=== PATIENT | male | born 1940 | race Hispanic/Latino ===

== ENCOUNTER 2018-09-05 18:00 | Inpatient (IN) | payer OTHER ==
[2018-09-05 20:43] VITALS: BMI 20.2
[2018-09-05] MEDS ORDERED: Oxycodone/Acetaminophen 5/325 mg Tab PO PRN (23:29)
[2018-09-05] MEDS ORDERED: Insulin NPH Human 100 Units/ml Inj SC SCH (23:45)
[2018-09-06] MEDS ORDERED: levoFLOXacin 750 MG TAB PO SCH (01:00)
[2018-09-06] MEDS ORDERED: Insulin Lispro (humaLOG) 100 Units/ml Inj SC SCH ×2 (01:00)
--- NOTE | 2018-09-06 01:44 | CP.PCM.HP ---
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 Denies any pain or discomfort at this time. Present on Admission - Present on Admission Any Indicators Present on Admission: Yes History of Uncontrolled Diabetes: Yes Review of Systems - Review of Systems Review of Systems: Apart from positives and pertinent negatives mentioned in the HPI rest of 14 points ROS was unremarkable. Past Patient History - Past Medical History & Family History Past Medical History?: Yes Pertinent Family History: Lung cancer in brother Uterine cancer in mother CVA in father - Past Social History Smoking Status: Former Smoker Alcohol: None Drugs: Denies - CARDIAC Hx Hypercholesterolemia: Yes Hx Hypertension: Yes Other/Comment: orthostatic hypotension - PULMONARY Hx Pneumonia: Yes - NEUROLOGICAL Hx Syncope: Yes - HEENT Other/Comment: wears eyeglass - ENDOCRINE/METABOLIC Hx Diabetes Mellitus Type 1: Yes - HEMATOLOGICAL/ONCOLOGICAL Hx AIDS: No Hx Human Immunodeficiency Virus (HIV): No - MUSCULOSKELETAL/RHEUMATOLOGICAL Hx Falls: Yes Hx Gout: Yes - GASTROINTESTINAL Hx Bowel Surgery: Yes Other/Comment: has jejunostomy and peg tube, pancreatic ca - PSYCHIATRIC Hx Substance Use: No - SURGICAL HISTORY Other/Comment: small bowel strictures - ANESTHESIA Hx Anesthesia: Yes Hx Anesthesia Reactions: Yes Has any member of the family had a problem w/ anesthesia?: No Meds Allergies/Adverse Reactions: Allergies Allergy/AdvReac Type Severity Reaction Status Date / Time No Known Allergies Allergy Verified 09/05/18 20:16 Physical Exam - Constitutional Appears: Non-toxic - Head Exam Head Exam: ATRAUMATIC, NORMAL INSPECTION, NORMOCEPHALIC - Eye Exam Eye Exam: EOMI Pupil Exam: PERRL - ENT Exam ENT Exam: Mucous Membranes Moist - Respiratory Exam Respiratory Exam: Clear to Auscultation Bilateral, NORMAL BREATHING PATTERN - Cardiovascular Exam Cardiovascular Exam: REGULAR RHYTHM, RRR, +S1, +S2 - GI/Abdominal Exam GI & Abdominal Exam: Soft Additional comments: NT/ND, no organomegaly, PEG and J-tubes in place, no evidence of bleeding, oozing or infection - Rectal Exam Rectal Exam: Deferred - Exam Additional comments: Deferred - Extremities Exam Extremities exam: Positive for: full ROM, normal inspection Additional comments: No joint deformity - Back Exam Back exam: NORMAL INSPECTION - Neurological Exam Neurological exam: Alert, CN II-XII Intact, Oriented x3 - Psychiatric Exam Psychiatric exam: Normal Affect, Normal Mood - Skin Skin Exam: Dry, Normal Color, Warm Results - Vital Signs Recent Vital Signs: Last Vital Signs Temp Pulse 75 09/05/18 21:32 Resp 18 09/05/18 21:32 BP Pulse Ox 100 09/05/18 21:32 - Labs Labs: Laboratory Results - last 24 hr 09/05/18 21:29 POC Glucose (mg/dL) 153 H Assessment & Plan - Assessment and Plan (Free Text) Assessment: 78 yo CM with recurrence of pancreatic cancer and GOO and pneumonia/bacteremia Plan: Continue Levaquin for total of 2 weeks since first negative culture (stop date 09/11/18) PT/OT Continue home meds Tube feeding Pain management Fall precautions - Date & Time Date: 09/05/18 Time: 23:00
[2018-09-06] MEDS: Insulin Lispro (humaLOG) 100 Units/ml Inj SC SCH ×9 (02:30→21:27)
[2018-09-06] MEDS: Insulin Detemir 100 Units/ml Inj SC SCH (05:44)
[2018-09-06 06:52] LABS: HEMOGLOBIN 7.9 g/dL (12.0-18.0); MEAN CELL VOLUME 93.4 fl (80.0-94.0); MEAN CORPUSCULAR HEMOGLOBIN 31.8 pg (27.0-31.0); MEAN CORPUSCULAR HGB CONC 34.1 g/dL (33.0-37.0); RBC 2.48 Mil/uL (4.40-5.90); WHITE BLOOD COUNT 6.2 K/uL (4.8-10.8)
[2018-09-06 07:02] LABS: BLOOD UREA NITROGEN 13 mg/dl (9-20); GFR NON-AFRICAN AMERICAN > 60
[2018-09-06] MEDS ORDERED: LANSOPRAZOLE 15 MG PEG SCH (09:00)
[2018-09-06] MEDS ORDERED: LIPASE PEG SCH (09:00)
[2018-09-06] MEDS ORDERED: LIDOCAINE TP SCH (09:00)
[2018-09-06] MEDS ORDERED: INSULIN GLARGINE SC SCH (09:00)
[2018-09-06] MEDS ORDERED: PROTEASE PEG SCH (09:00)
[2018-09-06] MEDS ORDERED: AMYLASE PEG SCH (09:00)
[2018-09-06] MEDS: Lidocaine 5% Patch TD SCH (09:34)
[2018-09-06] MEDS: POLYETHYLENE GLYCOL 3350 17 GM/Dose PACKET PEG SCH (09:34)
[2018-09-06] MEDS: Pantoprazole 20 mg EC Tab PO SCH (09:36)
[2018-09-06] MEDS: levoFLOXacin 750 MG TAB PO SCH (16:49)
[2018-09-06] MEDS: Insulin NPH Human 100 Units/ml Inj SC SCH (17:44)
[2018-09-07] MEDS: Insulin Lispro (humaLOG) 100 Units/ml Inj SC SCH ×12 (01:08→21:28)
[2018-09-07] MEDS: Insulin Detemir 100 Units/ml Inj SC SCH (05:19)
[2018-09-07] MEDS: POLYETHYLENE GLYCOL 3350 17 GM/Dose PACKET PEG SCH (09:00)
[2018-09-07] MEDS: Pantoprazole 20 mg EC Tab PO SCH (09:01)
[2018-09-07] MEDS: Lidocaine 5% Patch TD SCH (09:01)
[2018-09-07] MEDS: Enoxaparin 40 mg Syringe SC SCH (13:43)
[2018-09-07] MEDS: levoFLOXacin 750 MG TAB PO SCH (16:00)
[2018-09-07] MEDS ORDERED: Insulin NPH Human 100 Units/ml Inj SC STA (18:52)
[2018-09-07] MEDS: Insulin NPH Human 100 Units/ml Inj SC SCH (18:54)
[2018-09-08] MEDS: Insulin Lispro (humaLOG) 100 Units/ml Inj SC SCH ×10 (01:11→21:09)
[2018-09-08] MEDS: Insulin Detemir 100 Units/ml Inj SC SCH (05:58)
[2018-09-08 07:45] LABS: HEMOGLOBIN 8.3 g/dL (12.0-18.0); MEAN CELL VOLUME 92.5 fl (80.0-94.0); MEAN CORPUSCULAR HEMOGLOBIN 31.8 pg (27.0-31.0); MEAN CORPUSCULAR HGB CONC 34.4 g/dL (33.0-37.0); RBC 2.61 Mil/uL (4.40-5.90); RED CELL DISTRIBUTION WIDTH 16.4 % (11.5-14.5); WHITE BLOOD COUNT 6.2 K/uL (4.8-10.8)
[2018-09-08] MEDS: Enoxaparin 40 mg Syringe SC SCH (09:58)
[2018-09-08] MEDS: POLYETHYLENE GLYCOL 3350 17 GM/Dose PACKET PEG SCH (10:01)
[2018-09-08] MEDS: Lidocaine 5% Patch TD SCH (10:01)
[2018-09-08] MEDS: Pantoprazole 20 mg EC Tab PO SCH (10:03)
[2018-09-08] MEDS: levoFLOXacin 750 MG TAB PO SCH (17:59)
[2018-09-08] MEDS ORDERED: Insulin NPH Human 100 Units/ml Inj SC SCH (22:00)
[2018-09-08] MEDS ORDERED: Insulin Detemir 100 Units/ml Inj SC SCH (22:00)
--- NOTE | 2018-09-09 01:45 | CON ---
DATE: 09/08/2018 HISTORY OF PRESENT ILLNESS: This is a 78-year-old male with known history of type 2 insulin-requiring diabetes and significant history of recurrent pancreatic carcinoma now undergoing recent management for right lower lobe pneumonia and bacteremia on oral antibiotic therapy with physical, was transferred to TCU for recent deconditioning and is being referred now for diabetic management because of extremes of glycemic fluctuations as noted thereof. PAST MEDICAL HISTORY: As mentioned above, history of type 2 insulin-requiring diabetes on a combination of Levemir given in the morning and NPH given at a higher dose at dinnertime as noted with ongoing Humalog coverage scale as given and also has extremes of glycemic fluctuations from hypoglycemia to marked hyperglycemic accelerations as noted thereof. History of hypertension and dyslipidemia, history of pancreatic carcinoma diagnosed initially in 1997 to where he underwent a distal pancreatectomy and splenectomy with subsequent chemo and radiation therapy. He had recurrence in 2018 with subsequent chemo and radiation therapy undertaken thereof. He also had a subsequent gastric outlet obstruction and a prolonged hospitalization as noted. FAMILY HISTORY: Positive for hypertension and heart disease and significant cancer among the family members. SOCIAL HISTORY: The patient is a former smoker with a very supportive family as noted. REVIEW OF SYSTEMS: Admits to generalized body weakness with episodic bouts of dizziness and lightheadedness that has improved over the past week or so. No chest pains or palpitations with a residual nonproductive cough as noted. His oral intake has been variable with nausea and dyspepsia and currently only on liquid diet as noted. No recent alterations of bowel and urinary patterns. PHYSICAL EXAMINATION: GENERAL: This is an average built male in no apparent distress with a blood pressure of 140/80, pulse of 70 beats per minute regular, temperature 98, respirations 20. Height is 5 feet and 7 inches. Weight is 129 pounds. HEENT: Head normocephalic. Eyes anicteric with pink conjunctivae. Funduscopy not possible at this time. Ears, nose and throat otherwise normal. NECK: Supple. Thyroid gland is normal in size. No carotid bruits or any cervical adenopathy. CARDIOPULMONARY: Some adynamic precordium. S1, S2 is rapid and regular. LUNGS: Clear to auscultation. ABDOMEN: Flat, soft with positive bowel sounds. EXTREMITIES: No peripheral edema. Pulses are +2 bilaterally. LABORATORY DATA: His glucose levels today have ranged from 63-82 and 271 with a fasting glucose of 416 mg/dL. ASSESSMENT: This is a 78-year-old male with uncontrolled and decompensated type 2 insulin-requiring diabetes with markedly labile glycemic fluctuations as noted on a combination of basal insulin with Humalog coverage scale as given. He also has significant recurrent pancreatic carcinoma with prior chemo and radiation therapy as given. PLAN OF MANAGEMENT: We will modify his current insulin regimen to a more physiologic basal and bolus insulin drug combination and detailed orders have been given. Because of the liquid diet that the patient is on at this time with labile glycemic fluctuations, we will prudently lower his insulin requirements thereof. We will obtain serial chemistries and supplement accordingly needed. We will initiate Humalog given as 4 units t.i.d. with meals to start tomorrow morning as ordered. We will add basal insulin given as Levemir at 12 units subcu at bedtime daily as given. We will modify the coverage scale to obviate hypoglycemia and very minimal coverage will be given only for glucose levels above 300 as noted. We will follow and advise accordingly. Lizy Flood MD
[2018-09-09 06:03] LABS: BASO % 0.6 % (0.0-2.0); EOS # 0.3 K/uL (0.0-0.7); HEMOGLOBIN 8.9 g/dL (12.0-18.0); LYMPH # 0.6 K/uL (1.0-4.3); MEAN CELL VOLUME 92.5 fl (80.0-94.0); MEAN CORPUSCULAR HEMOGLOBIN 31.5 pg (27.0-31.0); MEAN CORPUSCULAR HGB CONC 34.1 g/dL (33.0-37.0); MEAN PLATELET VOLUME 7.8 fl (7.2-11.7); MONO # 0.6 K/uL (0.0-0.8); MONO % 12.5 % (0.0-10.0); NEUT # 3.7 K/uL (1.8-7.0); NEUT % 70.9 % (50.0-75.0); RBC 2.82 Mil/uL (4.40-5.90); RED CELL DISTRIBUTION WIDTH 16.7 % (11.5-14.5); WHITE BLOOD COUNT 5.2 K/uL (4.8-10.8)
[2018-09-09 06:17] LABS: ALBUMIN 3.3 g/dL (3.5-5.0); ALT/SGPT 77 U/L (21-72); AST/SGOT 83 U/L (17-59); BLOOD UREA NITROGEN 15 mg/dl (9-20); GFR NON-AFRICAN AMERICAN > 60
[2018-09-09] MEDS: Insulin Lispro (humaLOG) 100 Units/ml Inj SC SCH ×8 (07:00→22:04)
[2018-09-09] MEDS: Enoxaparin 40 mg Syringe SC SCH (09:27)
[2018-09-09] MEDS: POLYETHYLENE GLYCOL 3350 17 GM/Dose PACKET PEG SCH (09:27)
[2018-09-09] MEDS: Lidocaine 5% Patch TD SCH (09:27)
[2018-09-09] MEDS: Pantoprazole 20 mg EC Tab PO SCH (09:29)
--- NOTE | 2018-09-09 11:38 | PN ---
DATE: 09/09/2018 LOCATION: Room [address] [place] [address]. SUBJECTIVE: This is a 78-year-old male with recent uncontrolled type 2 insulin-requiring diabetes with underlying recurrent pancreatic carcinoma and is now being followed closely for metabolic management. His glycemic levels are fluctuating also with the variability of his oral intake as noted. His glucose levels have ranged from 60 to 266 and 349 mg/dL as noted overnight. His chemistries today showed a BUN of 15, sodium 129, potassium 4.9, chloride 91, CO2 of 27, glucose 372 and creatinine 0.8. ASSESSMENT: This is a 78-year-old male with recurrent pancreatic carcinoma with prior chemo and radiation therapy and is now being followed closely for his labile glycemic fluctuations related to the underlying disease process and also to the variability of his oral intake as noted thereof. He is currently only on the liquid diet as noted. PLAN OF MANAGEMENT: We will modify once again his basal insulin and increase the Levemir to 16 units subcu at bedtime daily to start tonight. We will continue the low-dose correction scale using NovoLog insulin to obviate hypoglycemia and detailed orders have been given. We will also continue the low-dose prandial insulin given as NovoLog at 4 units t.i.d. with meals as ordered. We will obtain serial chemistries and supplement accordingly as needed. We will follow. Lizy Flood MD
[2018-09-09] MEDS: Sodium Chloride 0.9% 1,000 ML IV SCH ×2 (13:03→22:43)
[2018-09-09] MEDS: levoFLOXacin 750 MG TAB PO SCH (18:11)
[2018-09-09] MEDS: LIPASE PEG SCH ×2 (18:12→18:45)
[2018-09-09] MEDS: AMYLASE PEG SCH ×2 (18:12→18:45)
[2018-09-09] MEDS: PROTEASE PEG SCH ×2 (18:12→18:45)
[2018-09-09] MEDS ORDERED: Insulin Detemir 100 Units/ml Inj SC SCH (22:00)
[2018-09-10] MEDS ORDERED: Insulin Lispro (humaLOG) 100 Units/ml Inj SC STA (01:05)
[2018-09-10] MEDS: Insulin Lispro (humaLOG) 100 Units/ml Inj SC SCH ×6 (06:45→21:16)
[2018-09-10 07:00] LABS: BLOOD UREA NITROGEN 15 mg/dl (9-20); CALCIUM 8.9 mg/dL (8.4-10.2); GFR NON-AFRICAN AMERICAN > 60
[2018-09-10] MEDS: POLYETHYLENE GLYCOL 3350 17 GM/Dose PACKET PEG SCH (08:48)
[2018-09-10] MEDS: Lidocaine 5% Patch TD SCH (08:48)
[2018-09-10] MEDS: Enoxaparin 40 mg Syringe SC SCH (08:48)
[2018-09-10] MEDS: Pantoprazole 20 mg EC Tab PO SCH (08:55)
[2018-09-10] MEDS: Pantoprazole 40 mg Susp UD PEG SCH (12:49)
[2018-09-10] MEDS ORDERED: Insulin Lispro (humaLOG) 100 Units/ml Inj SC SCH (16:30)
[2018-09-10] MEDS: levoFLOXacin 750 MG TAB PO SCH (17:20)
[2018-09-10] MEDS: AMYLASE PEG SCH (18:36)
[2018-09-10] MEDS: LIPASE PEG SCH (18:36)
[2018-09-10] MEDS: PROTEASE PEG SCH (18:36)
--- NOTE | 2018-09-10 19:04 | PN ---
DATE: 09/10/2018 ENDOCRINOLOGY FOLLOWUP NOTE LOCATION: In room 714. SUBJECTIVE: This is a 78-year-old male with recurrent pancreatic carcinoma and received chemo and radiation therapy, and is now being followed closely for metabolic management because of recent glycemic fluctuations as noted thereof. His oral intake is quite variable and is only tolerating liquid diet during the day as noted and receives enteral tube feedings overnight with supervening hyperglycemic accelerations as noted thereof. LABORATORY DATA: Chemistry showed a BUN of 15, sodium 130, potassium 4.5, chloride 94, CO2 of 27, glucose 157 and creatinine 3.7. His glucose levels overnight have ranged from 145 and very early this morning to 366 mg/dL. ASSESSMENT AND PLAN: So at this time, we will continue the modified basal and bolus insulin regimen because of the metabolic lability as noted thereof. With recurrent pancreatic carcinoma and the patient only on a liquids diet with solid food given overnight, then we will have to modify his current insulin regimen to optimize metabolic control. We will follow and advise accordingly. Lizy Flood MD
[2018-09-10] MEDS ORDERED: Insulin Detemir 100 Units/ml Inj SC SCH (22:00)
[2018-09-11] MEDS: Insulin Lispro (humaLOG) 100 Units/ml Inj SC SCH ×6 (01:23→22:00)
[2018-09-11] MEDS: Enoxaparin 40 mg Syringe SC SCH (09:36)
[2018-09-11] MEDS: Lidocaine 5% Patch TD SCH (09:36)
[2018-09-11] MEDS: POLYETHYLENE GLYCOL 3350 17 GM/Dose PACKET PEG SCH (09:37)
[2018-09-11] MEDS: Pantoprazole 40 mg Susp UD PEG SCH (09:38)
[2018-09-11] MEDS: Pantoprazole 20 mg EC Tab PO SCH (09:39)
[2018-09-11] MEDS ORDERED: Insulin Lispro (humaLOG) 100 Units/ml Inj SC SCH (16:30)
[2018-09-11] MEDS: levoFLOXacin 750 MG TAB PO SCH (16:47)
[2018-09-11] MEDS: PROTEASE PEG SCH (18:14)
[2018-09-11] MEDS: LIPASE PEG SCH (18:14)
[2018-09-11] MEDS: AMYLASE PEG SCH (18:14)
--- NOTE | 2018-09-11 18:43 | CP.PCM.PN ---
Subjective - Date & Time of Evaluation Date of Evaluation: 09/11/18 Time of Evaluation: 15:45 - Subjective Subjective: Patient seen and examined. Claimed he still felt dizzy when rising up in the morning. Objective - Vital Signs/Intake and Output Vital Signs (last 24 hours): Temp Pulse Resp BP Pulse Ox 98.4 F 80 20 134/75 100 09/11/18 16:29 09/11/18 16:29 09/11/18 16:29 09/11/18 16:29 09/11/18 16:29 - Medications Medications: Current Medications Acetaminophen (Tylenol 325mg Tab) 650 mg PO Q6 PRN PRN Reason: Pain, Mild (1-3) Amlodipine Besylate (Norvasc) 2.5 mg PO DAILY [facility] Last Admin: 09/06/18 09:35 Dose: Not Given Bisacodyl (Dulcolax) 10 mg RC DAILY PRN PRN Reason: Constipation Clotrimazole (Mycelex Emely) 10 mg PO QID [facility] Last Admin: 09/11/18 16:48 Dose: Not Given Diphenhydramine HCl (Benadryl) 25 mg PEG HS [facility] Last Admin: 09/10/18 21:59 Dose: Not Given Docusate Sodium (Colace Liquid) 10 mg PEG TID PRN PRN Reason: Constipation Enoxaparin Sodium (Lovenox) 40 mg SC DAILY [facility]; Protocol Last Admin: 09/11/18 09:36 Dose: Not Given Home Med (Lipase/Protease/Amylase [Viokace 20,880-78,300 Units Tb]) 2 units PEG DAILY@1800 [facility] Last Admin: 09/11/18 18:14 Dose: 2 units Insulin Detemir (Levemir) 22 units SC HS [facility] Insulin Human Lispro (Humalog) 0 units SC ACHS [facility] Last Admin: 09/11/18 16:47 Dose: Not Given Insulin Human Lispro (Humalog) 4 units SC ACB [facility] Last Admin: 09/11/18 07:00 Dose: 4 units Insulin Human Lispro (Humalog) 8 units SC ACD [facility] Last Admin: 09/11/18 16:48 Dose: 8 units Insulin Human Lispro (Humalog) 0 units SC DAILY@0200 [facility] Lidocaine (Lidoderm) 1 ea TD DAILY [facility] Last Admin: 03/12/19 09:36 Dose: Not Given Midodrine (Proamatine) 5 mg PEG DAILY [facility] Last Admin: 09/11/18 09:38 Dose: 5 mg Morphine Sulfate (Morphine) 2 mg IVP Q4 PRN PRN Reason: Pain, severe (8-10) Ondansetron HCl (Zofran Inj) 4 mg IVP Q6 PRN PRN Reason: Nausea/Vomiting Pantoprazole Sodium (Protonix Susp) 40 mg PEG DAILY [facility] Last Admin: 09/11/18 09:38 Dose: 40 mg Polyethylene Glycol (Miralax) 17 gm PEG DAILY [facility] Last Admin: 09/11/18 09:37 Dose: 17 gm - Labs Labs: 09/09/18 04:30 09/10/18 06:00 - Constitutional Appears: No Acute Distress - Head Exam Head Exam: ATRAUMATIC - Eye Exam Eye Exam: absent: Scleral icterus - ENT Exam ENT Exam: Mucous Membranes Moist - Neck Exam Neck Exam: absent: Meningismus - Respiratory Exam Respiratory Exam: absent: Rales, Rhonchi, Wheezes, Respiratory Distress - Cardiovascular Exam Cardiovascular Exam: REGULAR RHYTHM, +S1, +S2 - GI/Abdominal Exam GI & Abdominal Exam: Soft. absent: Tenderness - Rectal Exam Rectal Exam: Deferred - Neurological Exam Neurological Exam: Alert, Oriented x3 - Psychiatric Exam Psychiatric exam: Normal Affect - Skin Skin Exam: Dry, Intact Assessment and Plan - Assessment and Plan (Free Text) Assessment: 78 yo male with history of HTN, DM2 and Pancreatic cancer (post pancreatectomy/splenectomy and chemo and radiation) admitted to TCU for therapy because of physical deconditioning. Patient also recently have sepsis secondary to Klebsiella pneumonia bacteremia managed with Zosyn and then later on PO Levaquin 1. Physical Deconditioning continue PT/OT 2. Postural Hypotension still with postural hypotension continue Midodrine 5mg via PEG daily 3. HTN BP stable without medication Amlodipine on hold 4. DM2 BS relatively uncontrolled ACHS with low dose Lispro coverage Levemir 22 units SC HS Lispro 4 units SC ACB Lispro [address] Flood on consult 5. Sepsis resolved continue Levaquin 750mg PO daily for another week
[2018-09-11] MEDS ORDERED: Insulin Detemir 100 Units/ml Inj SC SCH (22:00)
[2018-09-12] MEDS: Insulin Lispro (humaLOG) 100 Units/ml Inj SC SCH ×6 (01:50→21:15)
--- NOTE | 2018-09-12 02:28 | PN ---
DATE: 09/11/2018 ENDOCRINOLOGY FOLLOWUP NOTE LOCATION: Room 714. SUBJECTIVE: This is a 78-year-old male with recent uncontrolled type 2 insulin-requiring diabetes with extremes of glycemic fluctuations and is now being followed closely for metabolic management. His glycemic levels are fluctuating and glucose levels have ranged from 169 to 292 and 366 mg/dL. LABORATORY DATA: His chemistry showed a BUN of 15, sodium 130, potassium 4.5, chloride 94, CO2 of 27, glucose 157 and creatinine 0.7. PLAN: So at this time, we will modify once again his basal and bolus insulin regimen and increase the Humalog to 8 units a.c. dinner to start today as ordered. We will also continue the Humalog given as 4 units a.c. breakfast daily as given. We will modify his basal insulin and increase the Levemir to 22 units subcu at bedtime daily to start tonight as ordered. We will modify the coverage scale to obviate hypoglycemia and detailed orders have been given. We will obtain serial chemistries and supplement accordingly needed. We will follow up. Lizy Flood MD
--- NOTE | 2018-09-12 06:53 | CP.PCM.CON ---
History of Present Illness - History of Present Illness History of Present Illness: 78 yo male with history of HTN, DM2 and Pancreatic cancer (post pancreatectomy/splenectomy and chemo and radiation) admitted to TCU for therapy because of physical deconditioning. Patient also recently have sepsis secondary to Klebsiella pneumonia bacteremia managed with Zosyn and then later on PO Levaquin Cardiology consult called for Orthostatic Hypotension which he claims he has had for about 1 year being treated with Midodrine EKG: non available PMH: HTN, HLD, DM-II, gout pancreatic carcinoma Past Patient History - Past Medical History & Family History Past Medical History?: Yes - Past Social History Smoking Status: Former Smoker Alcohol: None Drugs: Denies - CARDIAC Hx Hypercholesterolemia: Yes Hx Hypertension: Yes - PULMONARY Hx Pneumonia: Yes - NEUROLOGICAL Hx Syncope: Yes - HEENT Other/Comment: wears eyeglass - ENDOCRINE/METABOLIC Hx Diabetes Mellitus Type 2: Yes - HEMATOLOGICAL/ONCOLOGICAL Hx AIDS: No Hx Human Immunodeficiency Virus (HIV): No - MUSCULOSKELETAL/RHEUMATOLOGICAL Hx Falls: Yes Hx Gout: Yes - GASTROINTESTINAL Hx Bowel Surgery: Yes Other/Comment: has jejunostomy and peg tube, pancreatic ca - PSYCHIATRIC Hx Substance Use: No - SURGICAL HISTORY Other/Comment: small bowel strictures - ANESTHESIA Hx Anesthesia: Yes Hx Anesthesia Reactions: Yes Has any member of the family had a problem w/ anesthesia?: No Meds Allergies/Adverse Reactions: Allergies Allergy/AdvReac Type Severity Reaction Status Date / Time No Known Allergies Allergy Verified 09/05/18 20:16 - Medications Medications: Current Medications Acetaminophen (Tylenol 325mg Tab) 650 mg PO Q6 PRN PRN Reason: Pain, Mild (1-3) Amlodipine Besylate (Norvasc) 2.5 mg PO DAILY [facility] Last Admin: 09/06/18 09:35 Dose: Not Given Bisacodyl (Dulcolax) 10 mg RC DAILY PRN PRN Reason: Constipation Clotrimazole (Mycelex Emely) 10 mg PO QID [facility] Last Admin: 09/11/18 22:28 Dose: Not Given Diphenhydramine HCl (Benadryl) 25 mg PEG HS [facility] Last Admin: 09/11/18 22:00 Dose: Not Given Docusate Sodium (Colace Liquid) 10 mg PEG TID PRN PRN Reason: Constipation Enoxaparin Sodium (Lovenox) 40 mg SC DAILY [facility]; Protocol Last Admin: 09/11/18 09:36 Dose: Not Given Home Med (Lipase/Protease/Amylase [Viokace 20,880-78,300 Units Tb]) 2 units PEG DAILY@1800 [facility] Last Admin: 09/11/18 18:14 Dose: 2 units Insulin Detemir (Levemir) 22 units SC HS [facility] Last Admin: 09/11/18 21:59 Dose: 22 u Insulin Human Lispro (Humalog) 0 units SC ACHS [facility] Last Admin: 09/12/18 06:34 Dose: 3 unit Insulin Human Lispro (Humalog) 4 units SC ACB [facility] Last Admin: 09/12/18 06:34 Dose: 4 units Insulin Human Lispro (Humalog) 8 units SC ACD [facility] Last Admin: 09/11/18 16:48 Dose: 8 units Insulin Human Lispro (Humalog) 0 units SC DAILY@0200 [facility] Last Admin: 09/12/18 01:50 Dose: 3 u Levofloxacin (Levaquin) 750 mg PO DAILY [facility]; Protocol Lidocaine (Lidoderm) 1 ea TD DAILY [facility] Last Admin: 09/11/18 09:36 Dose: Not Given Midodrine (Proamatine) 5 mg PEG DAILY [facility] Last Admin: 09/11/18 09:38 Dose: 5 mg Morphine Sulfate (Morphine) 2 mg IVP Q4 PRN PRN Reason: Pain, severe (8-10) Ondansetron HCl (Zofran Inj) 4 mg IVP Q6 PRN PRN Reason: Nausea/Vomiting Pantoprazole Sodium (Protonix Susp) 40 mg PEG DAILY [facility] Last Admin: 09/11/18 09:38 Dose: 40 mg Polyethylene Glycol (Miralax) 17 gm PEG DAILY [facility] Last Admin: 09/11/18 09:37 Dose: 17 gm Physical Exam - Constitutional Appears: Well - Respiratory Exam Respiratory Exam: NORMAL BREATHING PATTERN - Cardiovascular Exam Cardiovascular Exam: REGULAR RHYTHM Results - Vital Signs Recent Vital Signs: Last Vital Signs Temp 984 F H 09/11/18 22:32 Pulse 85 09/11/18 22:32 Resp 20 09/11/18 22:32 BP 123/71 09/11/18 22:32 Pulse Ox 100 09/11/18 22:32 - Labs Result Diagrams: 09/09/18 04:30 03/11/19 06:00 Assessment & Plan (1) Orthostatic hypotension Assessment and Plan: agree continue with Midodrine Status: Acute (2) DM2 (diabetes mellitus, type 2) Status: Acute (3) Pancreas carcinoma Status: Acute
[2018-09-12] MEDS: levoFLOXacin 750 MG TAB PO SCH (09:06)
[2018-09-12] MEDS: POLYETHYLENE GLYCOL 3350 17 GM/Dose PACKET PEG SCH (09:07)
[2018-09-12] MEDS: Enoxaparin 40 mg Syringe SC SCH (09:07)
[2018-09-12] MEDS: Lidocaine 5% Patch TD SCH (09:07)
[2018-09-12] MEDS: Pantoprazole 40 mg Susp UD PEG SCH (09:08)
[2018-09-12] MEDS ORDERED: Insulin Lispro (humaLOG) 100 Units/ml Inj SC SCH (16:30)
[2018-09-12] MEDS: AMYLASE PEG SCH (18:19)
[2018-09-12] MEDS: PROTEASE PEG SCH (18:19)
[2018-09-12] MEDS: LIPASE PEG SCH (18:19)
--- NOTE | 2018-09-12 19:28 | PN ---
DATE: 09/12/2018 SUBJECTIVE: This is a 78-year-old male with known history of recurrent pancreatic carcinoma and extremely labile glycemic fluctuations and is now being followed closely for metabolic management. His glycemic levels overnight have ranged from 66-145 and 169, and 366 mg/dL; it was 198 at bedtime last night. LABORATORY DATA: His chemistry showed a BUN of 15, sodium 130, potassium 4.5, chloride 94, CO2 of 27, glucose 169 and creatinine 0.7. ASSESSMENT: This is a 78-year-old male with uncontrolled and decompensated type 2 insulin-requiring diabetes with marked hyperglycemic accelerations and also predilection for hypoglycemia because of the variability of his oral intake and currently on a liquid diet as noted. He receives enteral tube feedings overnight as noted for nutritional and caloric supplementation as given. Also has recurrent pancreatic carcinoma as noted and received recent chemo and radiation therapy as given. PLAN OF MANAGEMENT: We will modify once again his basal and bolus insulin regimen and increase the Levemir to 24 units subcu at bedtime daily to start tonight. We will increase the Humalog to 10 units a.c. dinner to start tonight also as ordered. We will continue the Humalog given as 4 units in the morning before breakfast as given. We will obtain serial chemistries and supplement accordingly as needed. We will continue also the low-dose correction scale using Humalog insulin only for glucose levels above 300 as ordered. We will follow. Lizy Flood MD
[2018-09-12] MEDS ORDERED: Insulin Detemir 100 Units/ml Inj SC SCH (22:00)
[2018-09-13] MEDS: Insulin Lispro (humaLOG) 100 Units/ml Inj SC SCH ×7 (01:20→22:19)
[2018-09-13] MEDS: Lidocaine 5% Patch TD SCH (08:30)
[2018-09-13] MEDS: levoFLOXacin 750 MG TAB PO SCH (08:30)
[2018-09-13] MEDS: Enoxaparin 40 mg Syringe SC SCH (08:31)
[2018-09-13] MEDS: POLYETHYLENE GLYCOL 3350 17 GM/Dose PACKET PEG SCH (08:31)
[2018-09-13] MEDS: Pantoprazole 40 mg Susp UD PEG SCH (08:32)
--- NOTE | 2018-09-13 09:11 | CARD ---
APPROVED REPORT Date of service: 09/12/2018 EKG Measurement Heart [id number] <Conclusion> Sinus rhythm with frequent premature atrial complexes Otherwise normal ECG
[2018-09-13] MEDS: Insulin Detemir 100 Units/ml Inj SC SCH (16:51)
--- NOTE | 2018-09-13 17:35 | CP.PCM.PN ---
Subjective - Date & Time of Evaluation Date of Evaluation: 09/13/18 Time of Evaluation: 14:45 - Subjective Subjective: Patient seen and examined. No other complaint aside from morning orthostatic hypotension Objective - Vital Signs/Intake and Output Vital Signs (last 24 hours): Temp Pulse Resp BP Pulse Ox 98.2 F 82 20 123/76 100 09/13/18 16:55 09/13/18 16:55 09/13/18 16:55 09/13/18 16:55 09/13/18 16:55 Intake and Output: 09/13/18 09/13/18 06:59 18:59 Intake Total 593 Balance 593 - Medications Medications: Current Medications Acetaminophen (Tylenol 325mg Tab) 650 mg PO Q6 PRN PRN Reason: Pain, Mild (1-3) Amlodipine Besylate (Norvasc) 2.5 mg PO DAILY [facility] Last Admin: 09/06/18 09:35 Dose: Not Given Bisacodyl (Dulcolax) 10 mg RC DAILY PRN PRN Reason: Constipation Clotrimazole (Mycelex Emely) 10 mg PO QID [facility] Last Admin: 09/13/18 16:54 Dose: Not Given Diphenhydramine HCl (Benadryl) 25 mg PEG HS [facility] Last Admin: 09/12/18 21:16 Dose: Not Given Docusate Sodium (Colace Liquid) 10 mg PEG TID PRN PRN Reason: Constipation Enoxaparin Sodium (Lovenox) 40 mg SC DAILY [facility]; Protocol Last Admin: 09/13/18 08:31 Dose: Not Given Home Med (Lipase/Protease/Amylase [Viokace 20,728-78,300 Units Tb]) 2 units PEG DAILY@1800 [facility] Last Admin: 09/12/18 18:19 Dose: 2 units Insulin Detemir (Levemir) 24 units SC DAILY@1600 [facility] Last Admin: 09/13/18 16:51 Dose: 24 units Insulin Human Lispro (Humalog) 0 units SC ACHS [facility] Last Admin: 09/13/18 16:53 Dose: Not Given Insulin Human Lispro (Humalog) 4 units SC ACB [facility] Last Admin: 09/13/18 06:55 Dose: 4 units Insulin Human Lispro (Humalog) 0 units SC DAILY@0200 [facility] Last Admin: 09/13/18 01:20 Dose: 5 u Insulin Human Lispro (Humalog) 10 units SC QPM [facility] Levofloxacin (Levaquin) 750 mg PO DAILY [facility]; Protocol Last Admin: 09/13/18 08:30 Dose: 750 mg Lidocaine (Lidoderm) 1 ea TD DAILY [facility] Last Admin: 09/13/18 08:30 Dose: Not Given Midodrine (Proamatine) 5 mg PEG BID [facility] Last Admin: 09/13/18 16:54 Dose: 5 mg Ondansetron HCl (Zofran Inj) 4 mg IVP Q6 PRN PRN Reason: Nausea/Vomiting Pantoprazole Sodium (Protonix Susp) 40 mg PEG DAILY [facility] Last Admin: 09/13/18 08:32 Dose: 40 mg Polyethylene Glycol (Miralax) 17 gm PEG DAILY [facility] Last Admin: 09/13/18 08:31 Dose: Not Given - Labs Labs: 09/09/18 04:30 09/10/18 06:00 - Constitutional Appears: No Acute Distress - Head Exam Head Exam: ATRAUMATIC - Eye Exam Eye Exam: absent: Scleral icterus - ENT Exam ENT Exam: Mucous Membranes Moist - Neck Exam Neck Exam: absent: Meningismus - Respiratory Exam Respiratory Exam: absent: Rales, Rhonchi, Wheezes, Respiratory Distress - Cardiovascular Exam Cardiovascular Exam: REGULAR RHYTHM, +S1, +S2 - GI/Abdominal Exam GI & Abdominal Exam: Soft. absent: Tenderness - Rectal Exam Rectal Exam: Deferred - Neurological Exam Neurological Exam: Alert, Oriented x3 - Psychiatric Exam Psychiatric exam: Normal Affect - Skin Skin Exam: Dry, Intact Assessment and Plan - Assessment and Plan (Free Text) Assessment: 78 yo male with history of HTN, DM2 and Pancreatic cancer (post pancreatectomy/splenectomy and chemo and radiation) admitted to TCU for therapy because of physical deconditioning. Patient also recently have sepsis secondary to Klebsiella pneumonia bacteremia managed with Zosyn and then later on PO Levaquin 1. Physical Deconditioning continue PT/OT 2. Postural Hypotension still with postural hypotension continue Midodrine 5mg via PEG daily 3. HTN BP stable without medication Amlodipine on hold 4. DM2 BS uncontrolled, fluctuating Levemir 24 units SC 4PM Lispro 4 units SC ACB Lispro [address] Flood on consult 5. Sepsis resolved continue Levaquin 750mg PO daily for another week
[2018-09-13] MEDS: PROTEASE PEG SCH (17:40)
[2018-09-13] MEDS: AMYLASE PEG SCH (17:40)
[2018-09-13] MEDS: LIPASE PEG SCH (17:40)
[2018-09-13] MEDS ORDERED: Insulin Detemir 100 Units/ml Inj SC SCH (18:00)
--- NOTE | 2018-09-13 19:27 | PN ---
DATE: 09/13/2018 ENDOCRINOLOGY FOLLOWUP NOTE LOCATION: In room 714 [facility]. SUBJECTIVE: This is a 78-year-old male with known history of recurrent pancreatic carcinoma, currently on a liquid diet during the day and enteral tube feedings as given. His glycemic levels are fluctuating as noted and the glucose values have ranged from 145 to 418 mg/dL. LABORATORY DATA: His chemistry showed a BUN of 15, sodium 130, potassium 4.5, chloride 94, CO2 of 27, glucose 157, and creatinine 0.7. ASSESSMENT AND PLAN: So at this time, the patient's family is requesting an earlier administration of the Levemir insulin as originally scheduled for bedtime. We will titrate the Levemir to 30 units because of the glucose values over 400 at 1 a.m. today, but the refused the higher dosing and has opted to change the dosing schedule to 4 p.m. of the Levemir to start tonight as ordered. We will continue to modify the higher dosing of the Humalog given as 10 units subcutaneously at 6 p.m. daily to start tonight. We will continue the low-dose correction scale using Humalog insulin as given. We will also continue the Humalog given as 4 units a.c. breakfast daily as ordered. We will obtain serial chemistries and supplement accordingly as needed. We will follow. Lizy Flood MD
[2018-09-14] MEDS: Insulin Lispro (humaLOG) 100 Units/ml Inj SC SCH ×7 (01:21→21:52)
[2018-09-14] MEDS: levoFLOXacin 750 MG TAB PO SCH (08:09)
[2018-09-14] MEDS: Enoxaparin 40 mg Syringe SC SCH (08:16)
[2018-09-14] MEDS: Lidocaine 5% Patch TD SCH (08:16)
[2018-09-14] MEDS: POLYETHYLENE GLYCOL 3350 17 GM/Dose PACKET PEG SCH (08:16)
[2018-09-14] MEDS: Pantoprazole 40 mg Susp UD PEG SCH (08:18)
[2018-09-14] MEDS: Insulin Detemir 100 Units/ml Inj SC SCH (16:07)
--- NOTE | 2018-09-14 17:54 | PN ---
DATE: 09/14/2018 ENDOCRINOLOGY FOLLOWUP NOTE LOCATION: Room 714. SUBJECTIVE: This is a 78-year-old male with recent uncontrolled type 2 insulin-requiring diabetes, now being followed closely for metabolic management. His glycemic levels are fluctuating, but improved as noted overnight and the glucose levels have ranged from 195 to 198 mg/dL. LABORATORY DATA: His chemistries showed a BUN of 15, sodium 130, potassium 4.5, chloride 94, CO2 of 27, glucose 157 and creatinine 0.7. ASSESSMENT AND PLAN: So, at this time because of the variability of his intakes both during the day and the overnight, enteral tube feedings as given, we will hold off further dose adjustments of his insulin to allow for dose equilibration. We will continue the Humalog given as 10 units at dinnertime daily as ordered with Humalog given as 4 units before breakfast as given. We will continue the Levemir given as 24 units subcutaneous at 4 p.m. daily as given. We will obtain serial chemistries and supplement accordingly as needed. We will follow. Lizy Flood MD
[2018-09-14] MEDS: LIPASE PEG SCH (18:03)
[2018-09-14] MEDS: PROTEASE PEG SCH (18:03)
[2018-09-14] MEDS: AMYLASE PEG SCH (18:03)
[2018-09-15] MEDS: Insulin Lispro (humaLOG) 100 Units/ml Inj SC SCH ×8 (02:58→22:18)
[2018-09-15] MEDS: levoFLOXacin 750 MG TAB PO SCH (09:13)
[2018-09-15] MEDS: Pantoprazole 40 mg Susp UD PEG SCH (09:15)
[2018-09-15] MEDS: POLYETHYLENE GLYCOL 3350 17 GM/Dose PACKET PEG SCH (09:15)
[2018-09-15] MEDS: Lidocaine 5% Patch TD SCH (09:15)
--- NOTE | 2018-09-15 12:58 | PN ---
DATE: 09/15/2018 SUBJECTIVE: This is a 78-year-old male with recent uncontrolled type 2 insulin-requiring diabetes, now being followed closely for metabolic management. His glycemic levels were elevated overnight as noted and the glucose values have ranged from 169 at bedtime and 304 at 3 a.m. this morning and 250 at breakfast time this morning, as noted. His dinnertime sugar was 265 mg/dL. LABORATORY DATA: His chemistries showed a BUN of 15, sodium 130, potassium 4.5, chloride 94, CO2 of 27, glucose 157, and creatinine 0.7. ASSESSMENT AND PLAN: So at this time, we will continue the low-dose correction scale only for glucose levels above 300 as given. We will also modify his basal insulin once again and increase the Levemir to 28 units subcutaneous at 4 p.m. daily as ordered. We will also continue the Humalog given as 4 units before breakfast and Humalog given as 10 units at dinnertime, at 6 p.m. in the evening as ordered. This is when the enteral tube feedings are also initiated overnight to optimize his caloric and protein requirements otherwise. We will obtain serial chemistries and supplement accordingly as needed. We will follow. Lizy Flood MD
[2018-09-15] MEDS: Nystatin 100,000 Units/ml Oral Susp 5 ml UD PO SCH ×3 (14:21→22:23)
[2018-09-15] MEDS ORDERED: Insulin Detemir 100 Units/ml Inj SC SCH (16:00)
[2018-09-15] MEDS: PROTEASE PEG SCH (17:50)
[2018-09-15] MEDS: AMYLASE PEG SCH (17:50)
[2018-09-15] MEDS: LIPASE PEG SCH (17:50)
[2018-09-16] MEDS: Insulin Lispro (humaLOG) 100 Units/ml Inj SC SCH ×7 (02:18→22:00)
[2018-09-16] MEDS: POLYETHYLENE GLYCOL 3350 17 GM/Dose PACKET PEG SCH (09:26)
[2018-09-16] MEDS: Lidocaine 5% Patch TD SCH (09:26)
[2018-09-16] MEDS: Nystatin 100,000 Units/ml Oral Susp 5 ml UD PO SCH ×4 (09:27→21:59)
[2018-09-16] MEDS: Pantoprazole 40 mg Susp UD PEG SCH (09:29)
[2018-09-16] MEDS ORDERED: Glucagon Recombinant 1 mg Inj IM PRN (10:52)
[2018-09-16] MEDS ORDERED: Dextrose 50% SYRINGE Inj (50 ml) IV PRN (10:52)
[2018-09-16] MEDS ORDERED: POLYETHYLENE GLYCOL 3350 17 GM/Dose PACKET PEG PRN (10:58)
[2018-09-16] MEDS ORDERED: Insulin Detemir 100 Units/ml Inj SC SCH (16:00)
[2018-09-16] MEDS: levoFLOXacin 750 MG TAB PO SCH (16:42)
--- NOTE | 2018-09-16 16:52 | PN ---
DATE: 09/16/2018 LOCATION: Room 714. SUBJECTIVE: This is a 78-year-old male with recent uncontrolled type 2 insulin-requiring diabetes, now being followed closely for metabolic management. His glycemic levels are fluctuating with the variability of his oral intake, especially with the enteral tube feedings being given at night as noted. His glucose levels overnight have ranged from 146 to 172 mg/dL. His 3 a.m. glucose was 313 mg/dL as noted and the bedtime glucose was 246 mg/dL. His chemistry showed a BUN of 15, sodium 130, potassium 4.5, chloride 94, CO2 of 27, glucose 157 and creatinine 0.7. 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 The family has been extremely reluctant for the insulin dose adjustments given initially this past week with the Levemir given as basal insulin to 30 units and they only opted to give 24 units, but clearly he needs higher insulin requirements to cover the glucose accelerations overnight as noted. recurrent pancreatic carcinoma with prior chemo and radiation therapy as given. PLAN OF MANAGEMENT: We will modify once again his basal insulin and increase the Levemir to 32 units subcu at 4 p.m. daily as ordered. I really hope the family will accept and listen to these recommendations as this is only to prevent the higher glycemic accelerations correctional supervisor lieutenant as noted and clearly is predictable because of the enteral tube feedings given at night. We will increase also the Humalog to 12 units at dinnertime at 6 p.m. today as ordered. We will continue the morning Humalog given as 4 units a.c. breakfast daily as ordered. We will obtain serial chemistries and supplement accordingly as needed. We will follow. Lizy Flood MD
[2018-09-16] MEDS ORDERED: Loperamide 1MG/7.5ML UD PEG ONE (17:07)
[2018-09-16] MEDS: PROTEASE PEG SCH (18:12)
[2018-09-16] MEDS: LIPASE PEG SCH (18:12)
[2018-09-16] MEDS: AMYLASE PEG SCH (18:12)
[2018-09-17] MEDS: Insulin Lispro (humaLOG) 100 Units/ml Inj SC SCH ×7 (02:08→22:47)
[2018-09-17 07:17] LABS: BASO % 0.7 % (0.0-2.0); EOS # 0.3 K/uL (0.0-0.7); EOS % 5.9 % (0.0-4.0); HEMOGLOBIN 8.7 g/dL (12.0-18.0); LYMPH # 0.7 K/uL (1.0-4.3); LYMPH % 12.7 % (20.0-40.0); MEAN CELL VOLUME 94.2 fl (80.0-94.0); MEAN CORPUSCULAR HEMOGLOBIN 31.5 pg (27.0-31.0); MEAN CORPUSCULAR HGB CONC 33.4 g/dL (33.0-37.0); MEAN PLATELET VOLUME 7.2 fl (7.2-11.7); MONO # 0.8 K/uL (0.0-0.8); MONO % 15.5 % (0.0-10.0); NEUT # 3.4 K/uL (1.8-7.0); NEUT % 65.2 % (50.0-75.0); NRBC % 0.1 % (0.0-0.0); RBC 2.77 Mil/uL (4.40-5.90); RED CELL DISTRIBUTION WIDTH 16.9 % (11.5-14.5); WHITE BLOOD COUNT 5.2 K/uL (4.8-10.8)
[2018-09-17] MEDS: Nystatin 100,000 Units/ml Oral Susp 5 ml UD PO SCH ×4 (08:39→22:58)
[2018-09-17] MEDS: Pantoprazole 40 mg Susp UD PEG SCH (08:40)
[2018-09-17 08:43] LABS: ALBUMIN 3.4 g/dL (3.5-5.0); ALT/SGPT 69 U/L (21-72); AST/SGOT 70 U/L (17-59); BLOOD UREA NITROGEN 21 mg/dl (9-20); CALCIUM 9.4 mg/dL (8.4-10.2); GFR NON-AFRICAN AMERICAN > 60
[2018-09-17] MEDS: levoFLOXacin 750 MG TAB PO SCH (16:11)
[2018-09-17] MEDS: Insulin Detemir 100 Units/ml Inj SC SCH (16:12)
--- NOTE | 2018-09-17 17:48 | PN ---
DATE: 09/17/2018 ENDOCRINOLOGY FOLLOWUP NOTE LOCATION: Room 714. SUBJECTIVE: This is a 78-year-old male with recent uncontrolled type 2 insulin-requiring diabetes with glycemic fluctuations that have improved overnight with the patient's acceptance of a higher dose regimen as previously recommended a week ago. His glycemic levels have ranged from 117 at bedtime to 177 and 206 at 3:00 a.m. today. His fasting glucose was 183 and the lunchtime glucose was 181 mg/dl. These glycemic levels have improved remarkably with the patient's acceptance of a higher dose insulin regimen as discussed lengthily with him. LABORATORY DATA: His chemistry showed a BUN of 21, sodium 135, potassium 4.7, chloride 92, CO2 of 31, glucose 218 and creatinine 0.8. ASSESSMENT AND PLAN: So at this time we will titrate once again his basal insulin to really achieve a close to optimal metabolic profile prior to his discharge. We will increase once again the Levemir only to 34 units subcutaneous at 4:00 p.m. daily as ordered. We will continue the Humalog modified 12 units before the enteral tube feedings at 6:00 p.m. daily as ordered. We will continue also the Humalog given as 4 units before breakfast every morning as ordered. We will continue the low-dose correction scale using Humalog insulin as given. We will obtain serial chemistries and supplement accordingly as needed. We will follow. Lizy Flood MD
[2018-09-17] MEDS: AMYLASE PEG SCH (18:06)
[2018-09-17] MEDS: LIPASE PEG SCH (18:06)
[2018-09-17] MEDS: PROTEASE PEG SCH (18:06)
[2018-09-18] MEDS: Insulin Lispro (humaLOG) 100 Units/ml Inj SC SCH ×7 (02:00→22:35)
[2018-09-18] MEDS: Nystatin 100,000 Units/ml Oral Susp 5 ml UD PO SCH ×4 (09:00→22:36)
[2018-09-18] MEDS ORDERED: Loperamide 1MG/7.5ML UD PEG PRN (12:50)
--- NOTE | 2018-09-18 16:07 | RAD ---
Date of service: 09/18/2018 HISTORY: follow up xray for RLL pneumonia COMPARISON: No prior. TECHNIQUE: Chest PA and lateral FINDINGS: LUNGS: No active pulmonary disease. Calcified granuloma is atrophy more dense than local ribs at the inferior right lung zone versus artifact. It is only seen in the frontal projection. PLEURA: No significant pleural effusion identified. No pneumothorax apparent. CARDIOVASCULAR: No aortic atherosclerotic calcification present. Normal cardiac size. No pulmonary vascular congestion. OSSEOUS STRUCTURES: No significant abnormalities. VISUALIZED UPPER ABDOMEN: Normal. OTHER FINDINGS: None. IMPRESSION: No definite acute infiltrate or pleural effusion appreciated bilaterally. Calcified granuloma or artifact noted inferior right lung zone.
[2018-09-18] MEDS: Insulin Detemir 100 Units/ml Inj SC SCH (16:36)
[2018-09-18] MEDS: Pantoprazole 40 mg Susp UD PEG SCH (16:38)
[2018-09-18] MEDS: LIPASE PEG SCH (18:00)
[2018-09-18] MEDS: PROTEASE PEG SCH (18:00)
[2018-09-18] MEDS: AMYLASE PEG SCH (18:00)
--- NOTE | 2018-09-18 19:29 | CP.PCM.PN ---
Subjective - Date & Time of Evaluation Date of Evaluation: 09/18/18 Time of Evaluation: 17:15 - Subjective Subjective: Patient seen and examined. Claimed diarrhea had subsided. Objective - Vital Signs/Intake and Output Vital Signs (last 24 hours): Temp Pulse Resp BP Pulse Ox 98.3 F 63 20 179/81 H 100 09/18/18 16:31 09/18/18 16:31 09/18/18 16:31 09/18/18 16:31 09/18/18 16:31 - Medications Medications: Current Medications Acetaminophen (Tylenol 325mg Tab) 650 mg PO Q6 PRN PRN Reason: Pain, Mild (1-3) Amlodipine Besylate (Norvasc) 2.5 mg PO DAILY [facility] Last Admin: 09/06/18 09:35 Dose: Not Given Bisacodyl (Dulcolax) 10 mg RC DAILY PRN PRN Reason: Constipation Dextrose (Dextrose 50% Inj) 0 ml IV STAT PRN; Protocol PRN Reason: Hypoglycemia Protocol Dextrose (Glutose 15) 0 gm PO ONCE PRN; Protocol PRN Reason: Hypoglycemia Protocol Diphenhydramine HCl (Benadryl) 25 mg PEG HS [facility] Last Admin: 09/17/18 22:46 Dose: Not Given Docusate Sodium (Colace Liquid) 10 mg PEG TID PRN PRN Reason: Constipation Glucagon (Glucagen Diagnostic Kit) 0 mg IM STAT PRN; Protocol PRN Reason: Hypoglycemia Protocol Home Med (Lipase/Protease/Amylase [Viokace 20,880-78,300 Units Tb]) 2 units PEG DAILY@1800 [facility] Last Admin: 09/18/18 18:00 Dose: 2 units Insulin Detemir (Levemir) 34 units SC DAILY@1600 [facility] Last Admin: 09/18/18 16:36 Dose: 34 units Insulin Human Lispro (Humalog) 0 units SC ACHS [facility] Last Admin: 09/18/18 16:37 Dose: Not Given Insulin Human Lispro (Humalog) 4 units SC ACB [facility] Last Admin: 09/18/18 08:05 Dose: Not Given Insulin Human Lispro (Humalog) 0 units SC DAILY@0200 [facility] Last Admin: 09/18/18 02:00 Dose: Not Given Insulin Human Lispro (Humalog) 12 units SC QPM [facility] Last Admin: 09/18/18 19:04 Dose: 12 units Loperamide HCl (Imodium 1mg/7.5ml Ud) 2 mg PEG Q4 PRN PRN Reason: Diarrhea Midodrine (Proamatine) 5 mg PEG BID [facility] Last Admin: 09/18/18 16:37 Dose: Not Given Nystatin (Nystatin Oral Susp) 5 ml PO QID [facility] Last Admin: 09/18/18 16:37 Dose: 5 ml Ondansetron HCl (Zofran Inj) 4 mg IVP Q6 PRN PRN Reason: Nausea/Vomiting Pantoprazole Sodium (Protonix Susp) 40 mg PEG DAILY [facility] Last Admin: 09/18/18 16:38 Dose: 40 mg Polyethylene Glycol (Miralax) 17 gm PEG DAILY PRN PRN Reason: Constipation - Labs Labs: 09/17/18 06:00 09/17/18 06:00 - Constitutional Appears: No Acute Distress - Head Exam Head Exam: ATRAUMATIC - Eye Exam Eye Exam: absent: Scleral icterus - ENT Exam ENT Exam: Mucous Membranes Moist - Neck Exam Neck Exam: absent: Meningismus - Respiratory Exam Respiratory Exam: absent: Rales, Rhonchi, Wheezes, Respiratory Distress - Cardiovascular Exam Cardiovascular Exam: REGULAR RHYTHM, +S1, +S2 - GI/Abdominal Exam GI & Abdominal Exam: Soft. absent: Tenderness - Rectal Exam Rectal Exam: Deferred - Neurological Exam Neurological Exam: Alert, Oriented x3 - Psychiatric Exam Psychiatric exam: Normal Affect - Skin Skin Exam: Dry, Intact Assessment and Plan - Assessment and Plan (Free Text) Assessment: 78 yo male with history of HTN, DM2 and Pancreatic cancer (post pancreatectomy/splenectomy and chemo and radiation) admitted to TCU for therapy because of physical deconditioning. Patient also recently have sepsis secondary to Klebsiella pneumonia bacteremia managed with Zosyn and then later on PO Levaquin 1. Physical Deconditioning continue PT/OT 2. Postural Hypotension denied being dizzy in am will reduce Midodrine 2.5mg via PEG BID because of elevated BP today 3. HTN BP slightly elevated will reduce Midodrine 4. DM2 BS relatively uncontrolled ACHS with low dose Lispro coverage Levemir 34 units SC daily Lispro 4 units SC ACB Lispro [address] Flood on consult 5. Sepsis resolved completed 2 weeks of PO Levaquin 750mg
--- NOTE | 2018-09-19 01:37 | PN ---
DATE: 09/18/2018 ENDOCRINOLOGY FOLLOWUP NOTE LOCATION: Room 714. SUBJECTIVE: This is a 78-year-old male with recent uncontrolled type 2 insulin-requiring diabetes with underlying recurrent pancreatic carcinoma and is now being followed closely for metabolic management. His glycemic levels are fluctuating but much improved at this time and the glucose levels have ranged from 110 to 188 and 172 mg/dL. LABORATORY DATA: His chemistry showed a BUN of 21, sodium 135, potassium 4.7, chloride 92, CO2 of 31, glucose 218 and creatinine 0.8. PLAN: So at this time, we will continue the same basal and bolus insulin regimen to allow for full dose equilibration and keep him on the Levemir given as 34 units subcu at 4 p.m. daily as ordered. We will continue the Humalog given as 12 units every 6 p.m. daily to coincide with the enteral tube feedings as given. We will continue the low-dose Humalog 4 units at breakfast time every morning as ordered. We will follow and advise accordingly. Lizy Flood MD
[2018-09-19] MEDS: Insulin Lispro (humaLOG) 100 Units/ml Inj SC SCH ×7 (02:49→22:37)
[2018-09-19] MEDS: Pantoprazole 40 mg Susp UD PEG SCH (08:48)
[2018-09-19] MEDS: Nystatin 100,000 Units/ml Oral Susp 5 ml UD PO SCH ×4 (08:48→22:37)
--- NOTE | 2018-09-19 12:49 | CP.PCM.CON ---
History of Present Illness - History of Present Illness History of Present Illness: Podiatry Consult Note: 78 year old male patient, HTN, HLD, DMII, gout and pancreatic carcinoma, seen and evaluated for painful elongated hallux nails. Patient states that they have been hurting him in his shoes and they are too thick for him to cut right now. He states that he does not follow up with a civil draftsman at home, in [place], but would like to. He denies any other pedal complaints at today's visit. Denies nausea/vomiting/fever/shortness of breath. PMHx: as above ALL: NKDA Past Patient History - Past Medical History & Family History Past Medical History?: Yes - Past Social History Smoking Status: Former Smoker Alcohol: None Drugs: Denies - CARDIAC Hx Hypercholesterolemia: Yes Hx Hypertension: Yes - PULMONARY Hx Pneumonia: Yes - NEUROLOGICAL Hx Syncope: Yes - HEENT Other/Comment: wears eyeglass - ENDOCRINE/METABOLIC Hx Diabetes Mellitus Type 2: Yes - HEMATOLOGICAL/ONCOLOGICAL Hx AIDS: No Hx Human Immunodeficiency Virus (HIV): No - MUSCULOSKELETAL/RHEUMATOLOGICAL Hx Falls: Yes Hx Gout: Yes - GASTROINTESTINAL Hx Bowel Surgery: Yes Other/Comment: has jejunostomy and peg tube, pancreatic ca - PSYCHIATRIC Hx Substance Use: No - SURGICAL HISTORY Other/Comment: small bowel strictures - ANESTHESIA Hx Anesthesia: Yes Hx Anesthesia Reactions: Yes Has any member of the family had a problem w/ anesthesia?: No Meds Allergies/Adverse Reactions: Allergies Allergy/AdvReac Type Severity Reaction Status Date / Time No Known Allergies Allergy Verified 09/05/18 20:16 - Medications Medications: Current Medications Acetaminophen (Tylenol 325mg Tab) 650 mg PO Q6 PRN PRN Reason: Pain, Mild (1-3) Amlodipine Besylate (Norvasc) 2.5 mg PO DAILY [facility] Last Admin: 09/06/18 09:35 Dose: Not Given Bisacodyl (Dulcolax) 10 mg RC DAILY PRN PRN Reason: Constipation Dextrose (Dextrose 50% Inj) 0 ml IV STAT PRN; Protocol PRN Reason: Hypoglycemia Protocol Dextrose (Glutose 15) 0 gm PO ONCE PRN; Protocol PRN Reason: Hypoglycemia Protocol Diphenhydramine HCl (Benadryl) 25 mg PEG HS [facility] Last Admin: 09/18/18 22:35 Dose: Not Given Docusate Sodium (Colace Liquid) 10 mg PEG TID PRN PRN Reason: Constipation Glucagon (Glucagen Diagnostic Kit) 0 mg IM STAT PRN; Protocol PRN Reason: Hypoglycemia Protocol Home Med (Lipase/Protease/Amylase [Viokace 20,120-78,300 Units Tb]) 2 units PEG DAILY@1800 [facility] Last Admin: 09/18/18 18:00 Dose: 2 units Insulin Detemir (Levemir) 34 units SC DAILY@1600 [facility] Last Admin: 09/18/18 16:36 Dose: 34 units Insulin Human Lispro (Humalog) 0 units SC ACHS [facility] Last Admin: 09/19/18 12:21 Dose: Not Given Insulin Human Lispro (Humalog) 4 units SC ACB [facility] Last Admin: 09/19/18 07:24 Dose: Not Given Insulin Human Lispro (Humalog) 0 units SC DAILY@0200 [facility] Last Admin: 09/19/18 02:49 Dose: Not Given Insulin Human Lispro (Humalog) 12 units SC QPM [facility] Last Admin: 09/18/18 19:04 Dose: 12 units Loperamide HCl (Imodium 1mg/7.5ml Ud) 2 mg PEG Q4 PRN PRN Reason: Diarrhea Midodrine (Proamatine) 2.5 mg PEG BID [facility] Nystatin (Nystatin Oral Susp) 5 ml PO QID [facility] Last Admin: 09/19/18 08:48 Dose: 5 ml Ondansetron HCl (Zofran Inj) 4 mg IVP Q6 PRN PRN Reason: Nausea/Vomiting Pantoprazole Sodium (Protonix Susp) 40 mg PEG DAILY [facility] Last Admin: 09/19/18 08:48 Dose: 40 mg Polyethylene Glycol (Miralax) 17 gm PEG DAILY PRN PRN Reason: Constipation Physical Exam - Constitutional Appears: Non-toxic, No Acute Distress - Head Exam Head Exam: ATRAUMATIC, NORMOCEPHALIC - Extremities Exam Additional comments: Vascular: DP/PT 1/4, CFT < 3 seconds, TG warm to warm, no edema appreciated Ortho: Painful hallux nails, MMT 5/5, no pain with calf compression Neuro: Gross sensation intact, protective sensation diminished Derm: Elongated hallux nails x 2, no open lesions, no erythema, mild xerosis to feet b/l - Neurological Exam Neurological exam: Alert, Oriented x3 - Psychiatric Exam Psychiatric exam: Normal Affect, Normal Mood Results - Vital Signs Recent Vital Signs: Last Vital Signs Temp 98.7 F 09/19/18 08:36 Pulse 80 09/19/18 08:36 Resp 20 09/19/18 08:36 BP 117/71 09/19/18 08:36 Pulse Ox 99 09/19/18 08:36 - Labs Result Diagrams: 09/17/18 06:00 09/17/18 06:00 Assessment & Plan - Assessment and Plan (Free Text) Assessment: 78 year old male patient, HTN, HLD, DMII, gout and pancreatic carcinoma, seen and evaluated for painful elongated hallux nails. Plan: Patient seen and evaluated Discussed in detail with Dr. Gonzalez Hallux nails debrided with large nail nippers without incident Educated patient on importance of checking feet daily for any open lesions Podiatry to sign off at this time, please reconsult as needed Thank you for the consult - Date & Time Date: 09/19/18 Time: 12:49
--- NOTE | 2018-09-19 13:40 | PN ---
DATE: 09/18/2018 ENDOCRINOLOGY FOLLOWUP NOTE. LOCATION: Room [address] [place] [address]. SUBJECTIVE: This is a 78-year-old male with recent uncontrolled type 2 insulin-requiring diabetes with extremes of glycemic fluctuations because of his non adherence to the recommended dose regimen time to the prescribed hours as noted. Last night he was supposed to get Humalog at 6 p.m. daily, but delayed his insulin until 8 p.m. daily with supervening low normal glycemic levels accordingly. His chemistry showed a BUN today of 21, sodium 135, potassium 4.5, chloride 92, CO2 of 31, glucose 218 and creatinine 0.8. ASSESSMENT: This is a 78-year-old male with recent uncontrolled type 2 insulin-requiring diabetes with underlying recurrent pancreatic carcinoma and is now being followed closely for metabolic management. His glycemic levels are fluctuating because of the initiation of enteral tube feedings only overnight as noted. PLAN OF MANAGEMENT: We continue to modify basal and bolus insulin regimen as given with Humalog given as 12 units every 6 p.m. daily as ordered. This will coincide with the initiation of his enteral tube feedings at the same exact time in the evening. We will also continue the low-dose Humalog given as 4 units subcu at breakfast time as ordered. We will continue the basal insulin modified to 34 units subcu at 4 p.m. daily as ordered. We will obtain serial chemistries and supplement accordingly as needed. We will follow. Lizy Flood MD
[2018-09-19] MEDS: Insulin Detemir 100 Units/ml Inj SC SCH (16:36)
[2018-09-19] MEDS: AMYLASE PEG SCH (18:00)
[2018-09-19] MEDS: PROTEASE PEG SCH (18:00)
[2018-09-19] MEDS: LIPASE PEG SCH (18:00)
[2018-09-20] MEDS: Insulin Lispro (humaLOG) 100 Units/ml Inj SC SCH ×7 (01:27→22:26)
--- NOTE | 2018-09-20 08:33 | PN ---
DATE: 09/19/2018 ENDOCRINOLOGY FOLLOWUP NOTE LOCATION: Room 714, [facility]. This is a 78-year-old male with recent uncontrolled type 2 insulin-requiring diabetes with underlying recurrent pancreatic carcinoma and is now being followed closely for metabolic management. His glucose values are fluctuating, but improved, and the glucose levels today have ranged from 140 to 190 mg/dL. It was 180 at breakfast time this morning and 174 at 3 a.m. today as noted. It was 103 at bedtime last night. His chemistry showed a BUN of 21, sodium 135, potassium 4.7, chloride 92, CO2 of 31, glucose 218 and creatinine 0.8. So at this time, we will continue the same basal and bolus insulin regimen to allow for full-dose equilibration and keep him on the Humalog given as 4 units before meals breakfast and Humalog given as 12 units at 6 p.m. daily as ordered. We will continue the Levemir given as basal insulin at 34 units subcu at 4 p.m. daily as ordered. We will obtain serial chemistries and supplement accordingly as needed. We will follow. Lizy Flood MD
[2018-09-20] MEDS: Nystatin 100,000 Units/ml Oral Susp 5 ml UD PO SCH ×4 (08:58→22:27)
[2018-09-20] MEDS: Pantoprazole 40 mg Susp UD PEG SCH (08:59)
--- NOTE | 2018-09-20 11:54 | CP.PCM.PN ---
Subjective - Date & Time of Evaluation Date of Evaluation: 09/20/18 Time of Evaluation: 11:53 - Subjective Subjective: doing well no complaints hd stable nad no cp sob calf tenderness Objective - Vital Signs/Intake and Output Vital Signs (last 24 hours): Temp Pulse Resp BP Pulse Ox 98.3 F 89 20 102/64 98 09/20/18 08:28 09/20/18 08:28 09/20/18 08:28 09/20/18 08:28 09/20/18 08:28 Intake and Output: GEN: WDWN, ALERT, COOPERATIVE HEENT: NCAT, PERRL, EOMI HEART: +S1+S2, RRR NO MRG LUNG: CTAB, NO WRR ABD: SOFT BSX4 NT ND NO HSM NO MASS EXT: WARM, WELL PERFUSED NEURO: AWAKE, ALERT, REFLEXES NORMAL SKIN: WARM DRY PSYCH: NORMAL MOOD NORMAL AFFECT - Medications Medications: Current Medications Acetaminophen (Tylenol 325mg Tab) 650 mg PO Q6 PRN PRN Reason: Pain, Mild (1-3) Amlodipine Besylate (Norvasc) 2.5 mg PO DAILY [facility] Last Admin: 09/06/18 09:35 Dose: Not Given Bisacodyl (Dulcolax) 10 mg RC DAILY PRN PRN Reason: Constipation Dextrose (Dextrose 50% Inj) 0 ml IV STAT PRN; Protocol PRN Reason: Hypoglycemia Protocol Dextrose (Glutose 15) 0 gm PO ONCE PRN; Protocol PRN Reason: Hypoglycemia Protocol Diphenhydramine HCl (Benadryl) 25 mg PEG HS [facility] Last Admin: 09/19/18 22:37 Dose: Not Given Docusate Sodium (Colace Liquid) 10 mg PEG TID PRN PRN Reason: Constipation Glucagon (Glucagen Diagnostic Kit) 0 mg IM STAT PRN; Protocol PRN Reason: Hypoglycemia Protocol Home Med (Lipase/Protease/Amylase [Viokace 20,880-78,300 Units Tb]) 2 units PEG DAILY@1800 [facility] Last Admin: 09/19/18 18:00 Dose: 2 units Insulin Detemir (Levemir) 34 units SC DAILY@1600 [facility] Last Admin: 09/19/18 16:36 Dose: 34 units Insulin Human Lispro (Humalog) 0 units SC ACHS [facility] Last Admin: 09/20/18 08:56 Dose: Not Given Insulin Human Lispro (Humalog) 4 units SC ACB [facility] Last Admin: 09/20/18 08:00 Dose: Not Given Insulin Human Lispro (Humalog) 0 units SC DAILY@0200 [facility] Last Admin: 09/20/18 01:27 Dose: Not Given Insulin Human Lispro (Humalog) 12 units SC QPM [facility] Last Admin: 09/19/18 19:04 Dose: 10 units Loperamide HCl (Imodium 1mg/7.5ml Ud) 2 mg PEG Q4 PRN PRN Reason: Diarrhea Midodrine (Proamatine) 2.5 mg PEG BID [facility] Last Admin: 09/20/18 08:58 Dose: 2.5 mg Nystatin (Nystatin Oral Susp) 5 ml PO QID [facility] Last Admin: 09/20/18 08:58 Dose: 5 ml Ondansetron HCl (Zofran Inj) 4 mg IVP Q6 PRN PRN Reason: Nausea/Vomiting Pantoprazole Sodium (Protonix Susp) 40 mg PEG DAILY [facility] Last Admin: 09/20/18 08:59 Dose: 40 mg Polyethylene Glycol (Miralax) 17 gm PEG DAILY PRN PRN Reason: Constipation - Labs Labs: 09/17/18 06:00 09/17/18 06:00 Assessment and Plan - Assessment and Plan (Free Text) Plan: 8 yo male with history of HTN, DM2 and Pancreatic cancer (post pancreatectomy/splenectomy and chemo and radiation) admitted to TCU for therapy because of physical deconditioning. Patient also recently have sepsis secondary to Klebsiella pneumonia bacteremia managed with Zosyn and then later on PO Levaquin 1. Physical Deconditioning continue PT/OT 2. Postural Hypotension denied being dizzy in am will reduce Midodrine 2.5mg via PEG BID because of elevated BP today 3. HTN BP slightly elevated will reduce Midodrine 4. DM2 BS relatively uncontrolled ACHS with low dose Lispro coverage Levemir 34 units SC daily Lispro 4 units SC ACB Lispro [address] Flood on consult 5. Sepsis resolved completed 2 weeks of PO Levaquin 750mg
[2018-09-20] MEDS: Insulin Detemir 100 Units/ml Inj SC SCH (16:13)
[2018-09-20] MEDS: AMYLASE PEG SCH (18:02)
[2018-09-20] MEDS: PROTEASE PEG SCH (18:02)
[2018-09-20] MEDS: LIPASE PEG SCH (18:02)
--- NOTE | 2018-09-20 19:45 | PN ---
DATE: 09/20/2018 ENDOCRINOLOGY FOLLOWUP NOTE LOCATION: Room 714. SUBJECTIVE: This is a 78-year-old male with recent uncontrolled type 2 insulin-requiring diabetes, now being followed closely for metabolic management. His glycemic levels are fluctuating but much improved over the last 48 hours as noted. His glucose levels have ranged from 125 to 190 mg/dL. LABORATORY DATA: His chemistry shows a BUN of 21, sodium 135, potassium 4.7, chloride 92, CO2 of 31, glucose 218, and creatinine 0.8. PLAN: So at this time, we will continue the same basal and bolus insulin regimen as ordered with Humalog given as 4 units before breakfast and 12 units at 6 p.m. daily as ordered. Will continue the Levemir given as 34 units subcutaneous at 4 p.m. daily as ordered. Will obtain serial chemistries and supplement accordingly as needed. We will follow. Lizy Flood MD
[2018-09-21] MEDS: Insulin Lispro (humaLOG) 100 Units/ml Inj SC SCH ×7 (02:00→22:30)
[2018-09-21] MEDS: Pantoprazole 40 mg Susp UD PEG SCH (09:50)
[2018-09-21] MEDS: Nystatin 100,000 Units/ml Oral Susp 5 ml UD PO SCH ×4 (09:50→22:30)
[2018-09-21] MEDS: Insulin Detemir 100 Units/ml Inj SC SCH ×2 (16:46→17:15)
--- NOTE | 2018-09-21 18:12 | PN ---
DATE: 09/21/2018 ENDO FOLLOWUP NOTE LOCATION: Room 714. SUBJECTIVE: This is a 78-year-old male with recent uncontrolled type 2 insulin-requiring diabetes with underlying recurrent pancreatic carcinoma and is now being followed closely for metabolic management. His glycemic levels are much improved at this time and the glucose values have ranged from 108-125 and 190 mg/dL. His chemistry showed a BUN of 21, sodium 135, potassium 4.7, chloride 92, CO2 31, glucose 218 and creatinine 0.8. So at this time, we will continue the same modified basal and bolus insulin regimen to allow for dose equilibration and keep him on the Humalog given as 4 units before breakfast in the morning and 12 units at 06:00 p.m. daily in the evening as ordered. We will continue also the basal insulin given as 34 units subcu at 04:00 p.m. daily as ordered. We will obtain serial chemistries and supplement accordingly needed. We will follow. Lizy Flood MD
[2018-09-21] MEDS: LIPASE PEG SCH (18:14)
[2018-09-21] MEDS: PROTEASE PEG SCH (18:14)
[2018-09-21] MEDS: AMYLASE PEG SCH (18:14)
[2018-09-22] MEDS: Insulin Lispro (humaLOG) 100 Units/ml Inj SC SCH ×7 (02:11→22:16)
[2018-09-22] MEDS: Nystatin 100,000 Units/ml Oral Susp 5 ml UD PO SCH ×4 (09:47→22:15)
[2018-09-22] MEDS: Pantoprazole 40 mg Susp UD PEG SCH (09:49)
--- NOTE | 2018-09-22 09:50 | PN ---
DATE: 09/22/2018 ENDOCRINOLOGY FOLLOWUP NOTE LOCATION: In room 714. SUBJECTIVE: This is a 78-year-old male with recent uncontrolled type 2 insulin-requiring diabetes, now being followed closely for metabolic management. His glycemic levels overnight remained near optimal, although slightly higher because of the patient's reluctance to get the prescribed insulin regimen last night. He opted to lower the Levemir by 2 units at dinnertime as previously ordered. His glucose levels overnight have ranged from 158 to 197 and 221 mg pre dL. His chemistry showed a BUN of 21, sodium 135, potassium 4.7, chloride 92, CO2 of 31, glucose 218, and creatinine 0.8. So at this time, we will continue the modified basal and bolus insulin regimen with Humalog given as 4 units a.c. breakfast and Humalog given as 12 units a.c. dinner as ordered. We will continue also the basal insulin given as Levemir at 32 units subcu at 4 p.m. as per the patient's insistence, although to give 34 units to really optimize his metabolic control. We will obtain serial chemistries and supplement accordingly as needed. We will follow. Lizy Flood MD
[2018-09-22] MEDS: Insulin Detemir 100 Units/ml Inj SC SCH (16:02)
[2018-09-22] MEDS: LIPASE PEG SCH (18:05)
[2018-09-22] MEDS: AMYLASE PEG SCH (18:05)
[2018-09-22] MEDS: PROTEASE PEG SCH (18:05)
[2018-09-22 22:01] VITALS: RESP 20
[2018-09-23] MEDS: Insulin Lispro (humaLOG) 100 Units/ml Inj SC SCH ×4 (02:07→12:00)
[2018-09-23 08:53] VITALS: BP 148/72; PULSE 75; TEMP 97.8; O2SAT 98
[2018-09-23] MEDS: Nystatin 100,000 Units/ml Oral Susp 5 ml UD PO SCH (10:58)
[2018-09-23] MEDS: Pantoprazole 40 mg Susp UD PEG SCH (11:00)
--- NOTE | 2018-09-23 11:05 | CP.PCM.DIS ---
Provider - Provider Date of Admission: 09/05/18 20:45 Attending physician: Shai Cardona MD Consults: 09/05/18 22:00 Case Management Referral Routine Comment: Physician Instructions: Reason For Exam: Reason for Referral: Discharge Planning 09/08/18 13:36 Endocrinology Consult Routine Comment: Consulting Provider: Lizy Flood Consulting Physician: Lizy Flood Reason for Consult: Elevated glucose level and low glucose level 09/11/18 18:47 Cardiology Consult Routine Comment: Consulting Provider: Frank Felton Consulting Physician: Frank Felton Reason for Consult: postural hypotension 09/18/18 12:47 Podiatry Consult Routine Comment: Consulting Provider: Timur Landry Consulting Physician: Timur Landry Reason for Consult: long toe nail Time Spent in preparation of Discharge (in minutes): 25 Diagnosis - Discharge Diagnosis (1) Physical deconditioning Status: Acute Comment: patient did well with therapy (2) Orthostatic hypotension Status: Acute Comment: patient improved with Midodrine but do not continuation since Amlodipine was discontinued (3) HTN (hypertension) Status: Chronic Comment: BP controlled without Amlodipine and Midodrine. both medications DC (4) DM2 (diabetes mellitus, type 2) Status: Chronic Comment: BS controlled. Levemir 32 units SC at 4PM. ACHS with low Lisproi coverage Hospital Course - Lab Results Lab Results: Most Recent Lab Values WBC 5.2 K/uL (4.8-10.8) 09/17/18 06:00 RBC 2.77 Mil/uL (4.40-5.90) L 09/17/18 06:00 Hgb 8.7 g/dL (12.0-18.0) L 09/17/18 06:00 Hct 26.1 % (35.0-51.0) L 09/17/18 06:00 MCV 94.2 fl (80.0-94.0) H 09/17/18 06:00 MCH 31.5 pg (27.0-31.0) H 09/17/18 06:00 MCHC 33.4 g/dL (33.0-37.0) 09/17/18 06:00 RDW 16.9 % (11.5-14.5) H 09/17/18 06:00 Plt Count 477 K/uL (130-400) H 09/17/18 06:00 MPV 7.2 fl (7.2-11.7) 09/17/18 06:00 Neut % (Auto) 65.2 % (50.0-75.0) 09/17/18 06:00 Lymph % (Auto) 12.7 % (20.0-40.0) L 09/17/18 06:00 [place] % (Auto) 15.5 % (0.0-10.0) H 09/17/18 06:00 Eos % (Auto) 5.9 % (0.0-4.0) H 09/17/18 06:00 Baso % (Auto) 0.7 % (0.0-2.0) 09/17/18 06:00 Neut # (Auto) 3.4 K/uL (1.8-7.0) 09/17/18 06:00 Lymph # (Auto) 0.7 K/uL (1.0-4.3) L 09/17/18 06:00 [place] # (Auto) 0.8 K/uL (0.0-0.8) 09/17/18 06:00 Eos # (Auto) 0.3 K/uL (0.0-0.7) 09/17/18 06:00 Baso # (Auto) 0.0 K/uL (0.0-0.2) 09/17/18 06:00 Sodium 135 mmol/l (132-148) 09/17/18 06:00 Potassium 4.7 MMOL/L (3.6-5.0) 09/17/18 06:00 Chloride 92 mmol/L (98-107) L 09/17/18 06:00 Carbon Dioxide 31 mmol/L (22-30) H 09/17/18 06:00 Anion Gap 17 (10-20) 09/17/18 06:00 BUN 21 mg/dl (9-20) H 09/17/18 06:00 Creatinine 0.8 mg/dl (0.8-1.5) 09/17/18 06:00 Est GFR ( Amer) > 60 09/17/18 06:00 Est GFR (Non-Af Amer) > 60 09/17/18 06:00 POC Glucose (mg/dL) 125 mg/dL (65-110) H 09/20/18 12:11 Random Glucose 218 mg/dL (75-110) H 09/17/18 06:00 Hemoglobin A1c 7.2 % (4.2-6.5) H 09/09/18 04:30 Calcium 9.4 mg/dL (8.4-10.2) 09/17/18 06:00 Magnesium 1.7 MG/DL (1.6-2.3) 09/09/18 04:30 Total Bilirubin 0.3 mg/dl (0.2-1.3) 09/17/18 06:00 AST 70 U/L (17-59) H 09/17/18 06:00 ALT 69 U/L (21-72) 09/17/18 06:00 Alkaline Phosphatase 208 U/L (38-126) H D 09/17/18 06:00 Total Protein 6.9 G/DL (6.3-8.2) 09/17/18 06:00 Albumin 3.4 g/dL (3.5-5.0) L 09/17/18 06:00 Globulin 3.4 gm/dL (2.2-3.9) 09/17/18 06:00 Albumin/Globulin Ratio 1.0 (1.0-2.1) 09/17/18 06:00 TSH 3rd Generation 1.55 mIU/ML (0.46-4.68) 09/09/18 04:30 - Hospital Course Hospital Course: 78 yo male with history of HTN, DM2 and Pancreatic Cancer post distal pancreatectomy with chemo/radiation therapy complicated with gastric outlet obstruction resorting to PEG decompression and feeding admitted at [facility] because of sepsis secondary to RLL Pneumonia. He was transferred to TCU for further recuperation and therapy. Patient did well and now is ready for discharge. Discharge Exam - Head Exam Head Exam: ATRAUMATIC, NORMOCEPHALIC - Eye Exam Eye Exam: absent: Scleral icterus - ENT Exam ENT Exam: Mucous Membranes Moist - Respiratory Exam Respiratory Exam: absent: Rales, Rhonchi, Wheezes, Respiratory Distress - Cardiovascular Exam Cardiovascular Exam: REGULAR RHYTHM, +S1, +S2 - GI/Abdominal Exam GI & Abdominal Exam: Soft. absent: Tenderness - Rectal Exam Rectal Exam: Deferred - Neurological Exam Neurological exam: Alert, Oriented x3 - Psychiatric Exam Psychiatric exam: Normal Affect - Skin Skin Exam: Dry, Intact Discharge Plan - Discharge Medications Prescriptions: Insulin Detemir [Levemir] 32 units SC DAILY@1600 #1 vial Nystatin [Nystop Topical Powder] 1 applic TOP BID #1 bottle - Follow Up Plan Condition: GOOD Disposition: HOME/ ROUTINE
--- NOTE | 2018-09-23 15:41 | PN ---
DATE: 09/23/2018 ENDOCRINOLOGY FOLLOWUP NOTE LOCATION: Room 714. SUBJECTIVE: This is a 78-year-old male with recent uncontrolled type 2 insulin-requiring diabetes and underlying recurrent pancreatic carcinoma with recent chemo and radiation therapy and is now being followed closely for metabolic management. His glycemic levels overnight have remained near optimal with glucose values ranging from 107-193 and 215 mg/dL. LABORATORY DATA: His chemistries showed a BUN of 21, sodium 135, potassium 4.7, chloride 92, CO2 of 31, glucose 215 and 218 and creatinine 0.8. ASSESSMENT AND PLAN: So at this time, we will continue the current medical management with insulin combination therapy given as Humalog at 12 units subcutaneous at 6:00 p.m. daily, although the patient insists on giving at 8:00 p.m. with expected hyperglycemic accelerations at bedtime as noted. We will also continue the basal insulin given as Levemir at 32 units subcutaneous at 4:00 p.m. daily as ordered. We will continue the Humalog given as 4 units before breakfast as ordered. We will obtain serial chemistries and supplement accordingly as needed. We will follow. Lizy Flodo MD
== END 2018-09-23 13:05 | disposition home or self-care (01) | DRG 871 ==
LOC: H.TCU 20:45
PROVIDERS: ADMIT Internal Medicine; ATTEND Internal Medicine
PROC: 3E03329 Introduction of Other Anti-infective into Peripheral Vein, Percutaneous Approach (ICD-10-PCS; principal; 2018-09-05)
PROC: 3E0G76Z Introduction of Nutritional Substance into Upper GI, Via Natural or Artificial Opening (ICD-10-PCS; 2018-09-05)
PROC: F07M6FZ Therapeutic Exercise Treatment of Musculoskeletal System - Whole Body using Assistive, Adaptive, Supportive or Protective Equipment (ICD-10-PCS; 2018-09-06)
PROC: 0HBRXZZ Excision of Toe Nail, External Approach (ICD-10-PCS; 2018-09-19)
PROC: 0HBRXZZ Excision of Toe Nail, External Approach (ICD-10-PCS; 2018-09-19)
PROC: 0HBRXZZ Excision of Toe Nail, External Approach (ICD-10-PCS; 2018-09-19)
PROC: 0HBRXZZ Excision of Toe Nail, External Approach (ICD-10-PCS; 2018-09-19)
PROC: 0HBRXZZ Excision of Toe Nail, External Approach (ICD-10-PCS; 2018-09-19)
PROC: 0HBRXZZ Excision of Toe Nail, External Approach (ICD-10-PCS; 2018-09-19)
PROC: 0HBRXZZ Excision of Toe Nail, External Approach (ICD-10-PCS; 2018-09-19)
PROC: 0HBRXZZ Excision of Toe Nail, External Approach (ICD-10-PCS; 2018-09-19)
PROC: 0HBRXZZ Excision of Toe Nail, External Approach (ICD-10-PCS; 2018-09-19)
PROC: 0HBRXZZ Excision of Toe Nail, External Approach (ICD-10-PCS; 2018-09-19)
DX: A41.59 Other Gram-negative sepsis (principal); J18.1 Lobar pneumonia, unspecified organism; C25.9 Malignant neoplasm of pancreas, unspecified; K31.1 Adult hypertrophic pyloric stenosis; B96.1 Klebsiella pneumoniae [K. pneumoniae] as the cause of diseases classified elsewhere; E11.649 Type 2 diabetes mellitus with hypoglycemia without coma; E11.65 Type 2 diabetes mellitus with hyperglycemia; E78.00 Pure hypercholesterolemia, unspecified; E78.5 Hyperlipidemia, unspecified; I10 Essential (primary) hypertension; I95.1 Orthostatic hypotension; M10.9 Gout, unspecified; Z79.4 Long term (current) use of insulin; Z80.1 Family history of malignant neoplasm of trachea, bronchus and lung; Z80.49 Family history of malignant neoplasm of other genital organs; Z82.3 Family history of stroke; Z85.07 Personal history of malignant neoplasm of pancreas; Z87.01 Personal history of pneumonia (recurrent); Z87.891 Personal history of nicotine dependence; Z90.411 Acquired partial absence of pancreas; Z90.81 Acquired absence of spleen; Z92.21 Personal history of antineoplastic chemotherapy; Z92.3 Personal history of irradiation; Z93.1 Gastrostomy status; L60.8 Other nail disorders